=== PATIENT | female | born 1995 | race Caucasian/White ===

== ENCOUNTER 2017-01-04 22:12 | Emergency (ER) | payer BC, OTHER ==
[~2017-01-04] VITALS: Ht 160 cm; Wt 52.2 kg
[~2017-01-04 22:12] MED LIST: PREN1TAB58 PO
--- NOTE | 2017-01-04 23:39 | ED.ADGEN ---
Past History Past Medical History: No Pertinent History Past Surgical History: No Surgical History Alcohol Use: None Drug Use: None Adult General Chief Complaint Chief Complaint ".. I woke up with a stiff neck.. here on Rt..."'.. Muscle spasms'.." HPI HPI Patient is a 21 year old female who presents with that awaken with acute torticollis on right. No history of trauma. Does have muscle spasm of the right trapezius from approximately C 3 down to T7. Distal neurovascular intact. No history of fever or chills. No history immunosuppression. No history of travel. No midline tenderness. Patient is still breast-feeding her . Patient normally follows with . Review of Systems Review of Systems Constitutional: Denies fever or chills [] Eyes: Denies change in visual acuity, redness, or eye pain [] HENT: Denies nasal congestion or sore throat []. Complains of neck pain Respiratory: Denies cough or shortness of breath [] Cardiovascular: No additional information not addressed in HPI [] GI: Denies abdominal pain, nausea, vomiting, bloody stools or diarrhea [] : Denies dysuria or hematuria [] Musculoskeletal: Denies back pain or joint pain . Integument: Denies rash or skin lesions [] Neurologic: Denies headache, focal weakness or sensory changes [] Endocrine: Denies polyuria or polydipsia [] Family History Family History Noncontributory Current Medications Current Medications Current Medications Medications (Trade) Dose Ordered Sig/Omar Start Time Stop Time Status Last Admin Dose Admin Oxycodone/ Acetaminophen (Percocet 10/325) 1 tab 1X ONCE 01/05/17 00:45 01/05/17 00:46 DC 01/05/17 01:08 1 TAB See nursing for home meds Allergies Allergies Allergies Coded Allergies Type Severity Reaction Last Updated Verified No Known Drug Allergies 11/18/14 No Physical Exam Physical Exam Constitutional: Well developed, well nourished,in acute distress, non-toxic appearance. [] HENT: Normocephalic, atraumatic, bilateral external ears normal, oropharynx moist, no oral exudates, nose normal. Torticollis as per history of present illness Eyes: PERRLA, EOMI, conjunctiva normal, no discharge. [] Neck: Normal range of motion, no tenderness, supple, no stridor. [] Cardiovascular:Heart rate regular rhythm, no murmur [] Lungs & Thorax: Bilateral breath sounds clear to auscultation [] Abdomen: Bowel sounds normal, soft, no tenderness, no masses, no pulsatile masses. [] Skin: Warm, dry, no erythema, no rash. [] Back: No tenderness, no CVA tenderness. [] Extremities: No tenderness, no cyanosis, no clubbing, ROM intact, no edema. [] Neurologic: Alert and oriented X 3, normal motor function, normal sensory function, no focal deficits noted. DTRs +2 patella and brachial. Academic Associate equal. No sensation loss. Psychologic: Affect anxious, judgement normal, mood normal. [] Current Patient Data Vital Signs Vital Signs Date Time Temp Pulse Resp B/P (MAP) Pulse Ox O2 Delivery O2 Flow Rate FiO2 01/05/17 01:08 70 18 102/64 (77) 100 Room Air 01/04/17 22:43 98.3 EKG EKG [] Radiology/Procedures Radiology/Procedures [] Course & Med Decision Making Course & Med Decision Making Pertinent Labs and Imaging studies reviewed. (See chart for details). Patient use ice packs, massage, Tylenol ibuprofen [id number] for pain. For marked pain may take Vicodin up 4 times a day. Follow-up primary care. Return if any concerns. Only use small towel role for neck support at night. [] Final Impression Final Impression 1. Torticollis[] Problems: Dragon Disclaimer Dragon Disclaimer This electronic medical record was generated, in whole or in part, using a voice recognition dictation system. MICHELLE COSBY MD Jan 04, 2017 23:38
[2017-01-05] MEDS ORDERED: HYDR1TAB12 PO (00:26)
[2017-01-05] MEDS ORDERED: oxyCODONE/APAP 10/325 1 TAB TABLET PO ONE (00:45)
[2017-01-05 01:08] VITALS: BP 102/64
== END 2017-01-05 01:10 | disposition home or self-care (01) ==
LOC: ER 22:12
DX: M43.6 Torticollis (principal)
CPT/HCPCS: 99283

== ENCOUNTER 2017-08-16 14:54 | Emergency (ER) | payer BC, OTHER ==
[~2017-08-16] VITALS: Ht 160 cm; Wt 52.2 kg
[~2017-08-16 14:54] MED LIST changes: +HYDR1TAB12 PO
[2017-08-16 14:55] VITALS: BP 127/82
--- NOTE | 2017-08-16 15:48 | PHYS DOC ---
Past History Past Medical History: No Pertinent History Past Surgical History: No Surgical History Alcohol Use: None Drug Use: None Adult General Chief Complaint Chief Complaint: ELBOW PROBLEM HPI HPI 21-year-old female presents with left elbow pain. The patient was the local [employer] store carrying a bag of dog food when she tripped over a baby: Fell to the ground. She landed on her left elbow. She has an abrasion over the olecranon and some bruising. She states that it is painful to move her elbow. She does not believe she can straighten it due to pain. She denies any other injuries. She did not hit her head or get knocked out. Review of Systems Review of Systems Constitutional: Denies fever or chills [] Eyes: Denies change in visual acuity, redness, or eye pain [] HENT: Denies nasal congestion or sore throat [] Respiratory: Denies cough or shortness of breath [] Cardiovascular: No additional information not addressed in HPI [] GI: Denies abdominal pain, nausea, vomiting, bloody stools or diarrhea [] : Denies dysuria or hematuria [] Musculoskeletal: Left elbow pain[] Integument: Denies rash or skin lesions [] Neurologic: Denies headache, focal weakness or sensory changes [] Endocrine: Denies polyuria or polydipsia [] All other systems were reviewed and found to be within normal limits, except as documented in this note. Allergies Allergies Allergies Coded Allergies Type Severity Reaction Last Updated Verified No Known Drug Allergies 11/18/14 No Physical Exam Physical Exam Constitutional: Well developed, well nourished, no acute distress, non-toxic appearance. [] HENT: Normocephalic, atraumatic, bilateral external ears normal, oropharynx moist, no oral exudates, nose normal. [] Eyes: PERRLA, EOMI, conjunctiva normal, no discharge. [] Neck: Normal range of motion, no tenderness, supple, no stridor. [] Cardiovascular:Heart rate regular rhythm, no murmur [] Lungs & Thorax: Bilateral breath sounds clear to auscultation [] Abdomen: Bowel sounds normal, soft, no tenderness, no masses, no pulsatile masses. [] Skin: Warm, dry, no erythema, no rash. [] Back: No tenderness, no CVA tenderness. [] Extremities: Abrasion and bruising over the left elbow posteriorly, limited ROM due to pain[] Neurologic: Alert and oriented X 3, normal motor function, normal sensory function, no focal deficits noted. [] Psychologic: Affect normal, judgement normal, mood normal. [] Current Patient Data Vital Signs Vital Signs Date Time Temp Pulse Resp B/P (MAP) Pulse Ox O2 Delivery O2 Flow Rate FiO2 08/16/17 14:55 99.1 77 24 98 Room Air Radiology/Procedures Radiology/Procedures Examination: 3 views of the left elbow HISTORY: History of left elbow pain status post fall COMPARISON: None available. FINDINGS: The alignment of the left elbow grossly appears unremarkable. There is no acute fracture or dislocation identified. No evidence of elbow joint effusion. IMPRESSION: No acute osseous findings Electronically signed by: Suman Dill MD (08/16/2017 4:17 PM) [id number][] Course & Med Decision Making Course & Med Decision Making Pertinent Labs and Imaging studies reviewed. (See chart for details) The patient's x-rays are negative. I believe she just has a contusion of the left elbow. I will recommend ibuprofen and Tylenol for pain. [] Dragon Disclaimer Dragon Disclaimer This electronic medical record was generated, in whole or in part, using a voice recognition dictation system. Departure Departure: Referrals: PCP,NO (PCP) AMINTA ROWE DO August 16, 2017 15:48
--- NOTE | 2017-08-16 16:20 | RAD ---
Examination: 3 views of the left elbow HISTORY: History of left elbow pain status post fall COMPARISON: None available. FINDINGS: The alignment of the left elbow grossly appears unremarkable. There is no acute fracture or dislocation identified. No evidence of elbow joint effusion. IMPRESSION: No acute osseous findings Electronically signed by: Suman Dill MD (08/16/2017 4:17 PM) [id number]
[2017-08-16] MEDS ORDERED: HYDR-971 PO (16:30)
== END 2017-08-16 16:48 | disposition home or self-care (01) ==
LOC: ER 14:54
DX: S50.02XA Contusion of left elbow, initial encounter (principal); W03.XXXA Other fall on same level due to collision with another person, initial encounter; Y93.89 Activity, other specified; Y99.8 Other external cause status; Y92.512 Supermarket, store or market as the place of occurrence of the external cause
CPT/HCPCS: 73080; 99284

== ENCOUNTER → 2020-06-23 | Outpatient (CLI) | payer OTHER ==
[~2020-06-23] MED LIST changes: +HYDR-3165 PO; -HYDR1TAB12 PO; +HYDR1TAB13 PO
--- NOTE | 2020-06-23 13:32 | RAD ---
US BREAST LT Clinical Indication: 24-year-old female, LT BREAST LUMP x2-3 months Comparison: None. TECHNIQUE: Real-time ultrasound imaging of the left breast is performed. Findings: At the area of concern, 1:00 to 2:00 position there are normal breast tissues. The fascial planes are undisturbed. No solid mass or architectural distortion is seen. There is no abnormal shadowing. Ther e is a benign-appearing axillary lymph node measuring 6 x 4 mm. IMPRESSION: 1. Left breast ultrasound at the area of palpable concern is negative. Recommend clinical follow-up. 2. BI-RADS category 2, benign findings. Electronically signed by: Rolando Stephenson MD (06/23/2020 1:30 PM) [id number]
== END ==
LOC: US 13:05
PROVIDERS: ATTEND Physician Assistant Medical
DX: N63.20 Unspecified lump in the left breast, unspecified quadrant (principal)
CPT/HCPCS: 76641

== ENCOUNTER 2020-09-18 20:21 | Emergency (ER) | payer OTHER ==
[~2020-09-18] VITALS: Ht 160 cm; Wt 49.3 kg
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
[2020-09-18] MEDS ORDERED: CYCL-331 PO (21:22)
[2020-09-18] MEDS ORDERED: HYDR-1179 PO (21:22)
[2020-09-18 21:30] VITALS: BP 120/70
[2020-09-18] MEDS: KETOROLAC 60 MG/2 ML VIAL. IM ONE (21:50)
[2020-09-18] MEDS ORDERED: CYCLOBENZAPRINE 10MG 4TABLET STARTPACK PO ONE (21:55)
[2020-09-18] MEDS: CYCLOBENZAPRINE 10MG 4TABLET STARTPACK PO ONE ×2 (21:57→22:03)
== END 2020-09-18 21:59 | disposition home or self-care (01) ==
LOC: ER 20:21
DX: M62.838 Other muscle spasm (principal)
CPT/HCPCS: 81025; 96372; 99283; J1885